=== PATIENT | female | born 1960 | race Caucasian/White ===

== ENCOUNTER 2016-12-10 13:58 | Inpatient (IN) | payer BC ==
[2016-12-10] MEDS ORDERED: NORMAL SALINE 1000 ML 1,000 ML IV ONE (14:06)
--- NOTE | 2016-12-10 14:23 | ER Document Report ---
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 She states this started about 2 or 3 hours ago. About one hour ago she took a Phenergan. She also ate a candy bar thinking that perhaps her blood sugar was low because she felt shaky. She states she has mild substernal chest pressure. Her symptoms were not improving so she decided to come to the emergency department. She states that she takes 3 medications for her blood pressure which include verapamil, lisinopril, and Dyazide. She reports no recent changes in dose. She did take all 3 of these medicines today. She denies any vomiting. She did have one episode of diarrhea earlier today. No dysuri. no recent fevers or chills. She herself has no cardiac history however she has a significant family history of NC with her sister at age 47 and her father in his 60s. TRAVEL OUTSIDE OF THE [place] IN LAST 30 DAYS: No - Related Data Allergies/Adverse Reactions: No Known Allergies Allergy (Unverified 12/10/16 16:11) Home Medications: Current Home Medications Atorvastatin Calcium [Atorvastatin Calcium] 80 mg PO DAILY 12/10/16 [History] Cyclobenzaprine HCl [Cyclobenzaprine HCl] 5 mg PO PRN PRN 12/10/16 [History] Eletriptan Hydrobromide [Relpax] 40 mg PO PRN PRN 12/10/16 [History] Estradiol [Estradiol] 0.075 mg TOP DAILY 12/10/16 [History] Levothyroxine Sodium [Levothyroxine Sodium] 75 mcg PO DAILY 12/10/16 [History] Metformin HCl 1,000 mg PO BID 12/10/16 [History] Montelukast Sodium [Montelukast Sodium] 10 mg PO DAILY 12/10/16 [History] Triamterene/Hydrochlorothiazid [Triamterene-Hctz 75-50 mg Tab] 1 each PO DAILY 12/10/16 [History] Verapamil HCl [Verapamil ER] 240 mg PO DAILY 12/10/16 [History] Past Medical History - Social History Smoking Status: Unknown if Ever Smoked Family History: CAD - Sister and father of massive NC Review of Systems - Review of Systems Constitutional: See HPI, Diaphoresis. denies: Chills, Fever EENT: No symptoms reported Cardiovascular: See HPI. denies: Palpitations Respiratory: See HPI. denies: Cough, Hurts to breathe, Sputum, Wheezing Gastrointestinal: See HPI, Nausea. denies: Abdominal pain, Vomiting Genitourinary: No symptoms reported. denies: Dysuria Musculoskeletal: No symptoms reported Skin: No symptoms reported Hematologic/Lymphatic: No symptoms reported Neurological/Psychological: No symptoms reported Physical Exam - Vital signs Vitals: Resp BP Pulse Ox 14 93/59 L 96 12/10/16 14:36 12/10/16 14:36 12/10/16 14:36 - General In distress: None Notes: Somewhat ill-appearing adult female, conversant, pale - HEENT Head: Normocephalic, Atraumatic Eyes: Normal Conjunctiva: Normal Cornea: Normal Extraocular movements intact: Yes Pupils: PERRL Mucous membranes: Other - somewhat tacky Neck: Normal - Respiratory Respiratory status: No respiratory distress Breath sounds: Normal. No: Rales, Rhonchi, Wheezing - Cardiovascular Rhythm: Regular Heart sounds: Normal auscultation, S1 appreciated, S2 appreciated - Abdominal Inspection: Normal Distension: No distension Bowel sounds: Normal Tenderness: Nontender Organomegaly: No organomegaly - Back Back: Normal - Extremities Notes: distal pulses intact all 4 extremities. - Neurological Neuro grossly intact: Yes Cognition: Normal Orientation: AAOx4 Cranial nerves: Normal Motor strength normal: LUE, RUE, LLE, RLE Sensory: Normal - Psychological Associated symptoms: Normal affect, Normal mood Course - Re-evaluation Re-evalutation: 12/10/16 14:21 EKG showed an accelerated junctional escape rhythm with a rate of 67. I see no P waves. There is minimal ST elevation in lead 2 however she no reciprocal changes. I did discuss this EKG with the revenue settlements administrator optoelectronics engineer Dr. Calle who will assess the EKG and call me back. Patient is noted to be hypotensive and saline bolus has been initiated. 12/10/16 14:30 recommends a dose of calcium gluconate as well as starting dopamine. Will also discuss transfer as patient may need pacemaker. 12/10/16 14:42 Dr. Calle is at the bedside. Blood pressure is responding to the normal saline bolus and calcium has been given as well. Repeat EKG shows sinus rhythm with a rate of 62. There is no acute ST elevation or depression noted. Dr. Calle recommends stat echocardiogram and IMCU admission. 12/10/16 15:19 Labs are back and first troponin is negative. Dr Calle has notified hospitalist Dr Charles. Dr. Charles will admit to ICU - Vital Signs Vital signs: Temp Pulse Resp BP Pulse Ox 97.4 F 84 16 103/64 100 12/11/16 10:49 12/11/16 10:49 12/11/16 10:49 12/11/16 10:49 12/11/16 10:49 - Laboratory Result Diagrams: 12/11/16 02:37 12/11/16 02:37 Laboratory results interpreted by me: 12/10/16 12/10/16 12/10/16 14:00 14:00 14:00 WBC 12.2 H Glucose 138 H POC Glucose Lactic Acid 4.0 H 12/10/16 14:45 WBC Glucose POC Glucose 113 H Lactic Acid - Diagnostic Test Radiology reviewed: Reports reviewed - EKG Interpretation by Me Additional EKG results interpreted by me: EKG at 1408 demonstrates junctional escape rhythm at rate of 67. There is minimal diffuse ST elevation noted, most pronounced in lead II. No reciprocal changes noted. EKG at 1438 demonstrates normal sinus rhythm, rate 62, with borderline prolonged QTc of 500 Critical Care Note - Critical Care Note Total time excluding time spent on procedures (mins): 45 - minutes of critical care time spent in direct contact evaluating and re-evaluating the patient, treating symptoms, reviewing labs and studies and speaking with consultants, excluding any procedures Discharge - Discharge Clinical Impression: Lactic acidosis Chest pain Qualifiers: Chest pain type: unspecified Qualified Code(s): R07.9 - Chest pain, unspecified Hypotension Qualifiers: Hypotension type: unspecified hypotension type Qualified Code(s): I95.9 - Hypotension, unspecified Condition: Fair Admitting Provider: Hospitalist - Dr. Charles Unit Admitted: ICU
[2016-12-10] MEDS ORDERED: CALCIUM GLUCONATE 1000 MG/10 ML INJ IV ONE (14:25)
[2016-12-10] MEDS ORDERED: DOPAMINE HCL/DEXTROSE 5%-WATER 250 ML IV PRN (14:26)
[2016-12-10 14:34] LABS: ABSOLUTE EOSINOPHILS # (AUTO) 0.2 10^3/uL (0.0-0.6); ABSOLUTE LYMPHOCYTES (AUTO) 4.2 10^3/uL (0.5-4.7); ABSOLUTE MONOCYTES (AUTO) 1.2 10^3/uL (0.1-1.4); ABSOLUTE NEUT (AUTO) 6.6 10^3/uL (1.7-8.2); BASOPHILS % (AUTO) 0.3 % (0-2); EOSINOPHILS % (AUTO) 1.4 % (0-6); HEMATOCRIT 43.5 % (36.0-47.0); HEMOGLOBIN 14.8 g/dL (12.0-15.5); HGB HCT DIFFERENCE 0.9; LYMPHOCYTES % (AUTO) 34.2 % (13-45); MEAN CORPUSCULAR HGB CONC 33.9 g/dL (32.0-36.0); MEAN CORPUSCULAR VOLUME 88 fl (80-97); MONOCYTES % (AUTO) 9.8 % (3-13); RED BLOOD COUNT 4.92 10^6/uL (3.72-5.28); RED CELL DISTRIBUTION WIDTH 13.2 % (11.5-14.0); SEGMENTED NEUTROPHILS % (AUTO) 54.3 % (42-78); WHITE BLOOD COUNT 12.2 10^3/uL (4.0-10.5)
[2016-12-10 14:39] LABS: PROTHROMBIN TIME 12.3 SEC (11.4-15.4)
[2016-12-10 14:42] LABS: VENOUS BLOOD BASE EXCESS -2.8 mmol/L; VENOUS BLOOD HCO3 23.9 mmol/L (20-32); VENOUS BLOOD PCO2 48.5 mmHg (35-63); VENOUS BLOOD PH 7.31 (7.30-7.42)
[2016-12-10 15:01] LABS: ALANINE AMINOTRANSFERASE 48 U/L (9-52); ALBUMIN 4.1 g/dL (3.5-5.0); ALKALINE PHOSPHATASE 60 U/L (38-126); ANION GAP 16 (5-19); ASPARTATE AMINO TRANSFERASE 30 U/L (14-36); BILIRUBIN,DIRECT 0.3 mg/dL (0.0-0.4); BILIRUBIN,TOTAL 0.9 mg/dL (0.2-1.3); BLOOD UREA NITROGEN 14 mg/dL (7-20); CALCIUM 9.8 mg/dL (8.4-10.2); CARBON DIOXIDE 23 mmol/L (22-30); CHLORIDE 99 mmol/L (98-107); CREATINE KINASE 69 U/L (30-135); CREATININE RESULT 0.96 mg/dL (0.52-1.25); GLUCOSE 138 mg/dL (75-110); POTASSIUM 4.1 mmol/L (3.6-5.0); SODIUM 137.5 mmol/L (137-145); TOTAL PROTEIN 6.8 g/dL (6.3-8.2)
[2016-12-10 15:13] LABS: CREATINE KINASE MB 1.05 ng/mL (<4.55); TROPONIN I < 0.012 ng/mL
[2016-12-10] MEDS ORDERED: ASPIRIN 81 MG TABLET, CHEWABLE PO ONE (15:24)
[2016-12-10] MEDS ORDERED: ASPIRIN 81 MG TABLET, CHEWABLE ONE (15:50)
--- NOTE | 2016-12-10 15:54 | PDOC H&P ---
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 She states this started about 2 or 3 hours ago. About one hour ago she took a Phenergan. She also ate a candy bar thinking that perhaps her blood sugar was low because she felt shaky. She states she has mild substernal chest pressure. Her symptoms were not improving so she decided to come to the emergency department. She states that she takes 3 medications for her blood pressure which include verapamil, lisinopril, and Dyazide. She reports no recent changes in dose. She did take all 3 of these medicines today. She denies any vomiting. She did have one episode of diarrhea earlier today. No dysuri. no recent fevers or chills. Upon evaluation in the ED patient was found hypotensive in a junctional rhythm She was treated with fluid boluses; calcium gluconate [address] Calle cardiology was consulted Her rhythm changed to a normal sinus rhythm and her blood pressure seemed to normalize at 90/60 She did not have any recurrence of chest pain Initial troponin was negative Patient was subsequently admitted to ICU Past Medical History Cardiac Medical History: Reports: Hypertension, Other - Last stress test was at least 10 years ago Endocrine Medical History: Reports: Diabetes Mellitus Type 2, Hypothyroidism, Other - Hyperlipidemia GI Medical History: Reports: None Musculoskeltal Medical History: Reports: None Skin Medical History: Reports: None Psychiatric Medical History: Reports: None Hematology: Reports: None Infectious Medical History: Reports: None Past Surgical History Past Surgical History: Reports: Cholecystectomy, Hysterectomy, Other - Social History Information Source: Patient Lives with: Family Smoking Status: Never Smoker Frequency of Alcohol Use: None Hx Recreational Drug Use: No Drugs: None Family History Family History: CAD, Hypertension Parental Family History Reviewed: Yes Children Family History Reviewed: Yes Sibling(s) Family History Reviewed.: Yes Review of Systems Constitutional: ABSENT: chills, fever(s), headache(s), weight gain, weight loss Eyes: ABSENT: visual disturbances Ears: ABSENT: hearing changes Cardiovascular: PRESENT: chest pain. ABSENT: dyspnea on exertion, edema, orthropnea, palpitations Respiratory: ABSENT: cough, hemoptysis Gastrointestinal: PRESENT: as per HPI, diarrhea, nausea. ABSENT: abdominal pain , constipation, hematemesis, hematochezia Genitourinary: ABSENT: dysuria, hematuria Musculoskeletal: ABSENT: joint swelling Integumentary: ABSENT: rash, wounds Neurological: PRESENT: dizziness, weakness. ABSENT: abnormal gait, abnormal speech, confusion, focal weakness, syncope Psychiatric: ABSENT: anxiety, depression, homidical ideation, suicidal ideation Endocrine: ABSENT: cold intolerance, heat intolerance, polydipsia, polyuria Hematologic/Lymphatic: ABSENT: easy bleeding, easy bruising Physical Exam General appearance: PRESENT: no acute distress, well-developed, well-nourished Head exam: PRESENT: atraumatic, normocephalic Eye exam: PRESENT: conjunctiva pink, EOMI, PERRLA. ABSENT: scleral icterus Ear exam: PRESENT: normal external ear exam Mouth exam: PRESENT: moist, tongue midline Neck exam: ABSENT: carotid bruit, JVD, lymphadenopathy, thyromegaly Respiratory exam: PRESENT: clear to auscultation jigna. ABSENT: rales, rhonchi, wheezes Cardiovascular exam: PRESENT: RRR. ABSENT: diastolic murmur, rubs, systolic murmur Pulses: PRESENT: normal dorsalis pedis pul Vascular exam: PRESENT: normal capillary refill GI/Abdominal exam: PRESENT: normal bowel sounds, soft. ABSENT: distended, guarding, mass, organolmegaly, rebound, tenderness Rectal exam: PRESENT: deferred Extremities exam: PRESENT: full ROM. ABSENT: calf tenderness, clubbing, pedal edema Neurological exam: PRESENT: alert, awake, oriented to person, oriented to place , oriented to time, oriented to situation, CN II-XII grossly intact. ABSENT: motor sensory deficit Psychiatric exam: PRESENT: appropriate affect, normal mood. ABSENT: homicidal ideation, suicidal ideation Skin exam: PRESENT: dry, intact, warm. ABSENT: cyanosis, rash Results Laboratory Results: 12/10/16 14:00 12/10/16 14:00 12/10/16 12/10/16 12/10/16 14:00 14:00 14:00 WBC 12.2 H RBC 4.92 Hgb 14.8 Hct 43.5 MCV 88 MCH 30.0 MCHC 33.9 RDW 13.2 Plt Count 327 Seg Neutrophils % 54.3 Lymphocytes % 34.2 Monocytes % 9.8 Eosinophils % 1.4 Basophils % 0.3 Absolute Neutrophils 6.6 Absolute Lymphocytes 4.2 Absolute Monocytes 1.2 Absolute Eosinophils 0.2 Absolute Basophils 0.0 VBG pH VBG pCO2 VBG HCO3 VBG Base Excess Sodium 137.5 Potassium 4.1 Chloride 99 Carbon Dioxide 23 Anion Gap 16 BUN 14 Creatinine 0.96 Est GFR ( Amer) > 60 Est GFR (Non-Af Amer) > 60 Glucose 138 H Lactic Acid 4.0 H Calcium 9.8 Total Bilirubin 0.9 AST 30 ALT 48 Alkaline Phosphatase 60 Total Protein 6.8 Albumin 4.1 12/10/16 14:00 WBC RBC Hgb Hct MCV MCH MCHC RDW Plt Count Seg Neutrophils % Lymphocytes % Monocytes % Eosinophils % Basophils % Absolute Neutrophils Absolute Lymphocytes Absolute Monocytes Absolute Eosinophils Absolute Basophils VBG pH 7.31 VBG pCO2 48.5 VBG HCO3 23.9 VBG Base Excess -2.8 Sodium Potassium Chloride Carbon Dioxide Anion Gap BUN Creatinine Est GFR ( Amer) Est GFR (Non-Af Amer) Glucose Lactic Acid Calcium Total Bilirubin AST ALT Alkaline Phosphatase Total Protein Albumin 12/10/16 12/10/16 14:00 14:00 Creatine Kinase 69 CK-MB (CK-2) 1.05 Troponin I < 0.012 EKG Comments: Initial EKG junctional rhythm Repeat EKG is normal sinus rhythm Impressions: Chest X-Ray 12/10/16 14:04 IMPRESSION: As above. Doubt acute cardiopulmonary disease. Assessment & Plan - Diagnosis (1) Near syncope Is this a current diagnosis for this admission?: YesPlan: Patient felt dizzy lightheaded Initially in the ED she was very hypotensive with a systolic of 60 Hypotension likely secondary to dehydration and calcium channel blockers Patient responded to infusion of saline and calcium gluconate (2) Hypotension Qualifiers: Hypotension type: unspecified hypotension type Qualified Code(s): I95.9 - Hypotension, unspecified Is this a current diagnosis for this admission?: YesPlan: See above Patient tissue to be continued on IV fluids and dopamine drip as per Dr. Calle (3) Junctional escape rhythm Is this a current diagnosis for this admission?: YesPlan: Resolved (5) Chest pain Qualifiers: Chest pain type: unspecified Qualified Code(s): R07.9 - Chest pain, unspecified Is this a current diagnosis for this admission?: YesPlan: Patient did have right-sided chest pressure Initial EKG shows [address] elevation inferior leads; still elevation resolved 30 minutes later The initial troponin was less than 0.012 We will repeat serial troponins and serial also repeat an EKG Dr. Calle does not feel that the patient needs to be transported to tertiary center at this time patient has no recurrence of the chest pain Echocardiogram is pending; being performed at time of this note is dictated - Time Time Spent with patient: Patient will be admitted overnight to the intensive care unit Critical Time spent with patient: 35 or more minutes - Inpatient Certification Based on my medical assessment, after consideration of the patient's comorbidities, presenting symptoms, or acuity I expect that the services needed warrant INPATIENT care.: Yes I certify that my determination is in accordance with my understanding of Medicare's requirements for reasonable and necessary INPATIENT services [42 CFR 412.3e].: Yes Medical Necessity: Need For IV Fluids, Need For Continuous Telemetry Monitoring
[2016-12-10] MEDS ORDERED: ENOXAPARIN SODIUM INJ 40 MG/0.4 ML DISP.SYRIN SUBCUT ONE (17:00)
--- NOTE | 2016-12-10 17:54 | XCELERA REPORT ---
[address] [address] Transthoracic Echocardiogram Report Name: TEDDY HUNT Age: 56 yrs Gender: Female : 1960 Patient Status: Inpatient Patient Location: \S\[facility]\S\A Study Date: 12/10/2016 03:35 PM Procedure: A two-dimensional transthoracic echocardiogram with color flow and Doppler was performed. The study was technically limited with all images being suboptimal in quality. Reason For Study: chest pain/hypotension History: chest pain/hypotension. Ordering Physician: JOSEFINA SANCHEZ Performed By: Rosita Mills Interpretation Summary The left ventricle is normal in size. There is normal left ventricular wall thickness. LV EF is 65% Left ventricular systolic function is normal. Doppler measurements suggest normal left ventricular diastolic function The left ventricular wall motion is normal. There is no thrombus. There is no ventricular septal defect visualized. The right ventricle is normal in size and function. The left atrial size is normal. The interatrial septum is intact with no evidence for an atrial septal defect. There is no evidence of mitral valve prolapse. There is no mitral valve stenosis. There is a trace amount of mitral regurgitation There is no aortic valve stenosis There is no LVOT obstruction. No aortic regurgitation is present. There is no tricuspid stenosis. There is a trace amount of tricuspid regurgitation Right ventricular systolic pressure is normal. RVSP is 17 mm of Hg , with RA mean of 5. The aortic root is normal size. There is no pericardial effusion. MMode/2D Measurements \T\ Calculations RVDd: 2.8 cm LVIDd: 4.6 cm FS: 37.5 % Ao root diam: 2.8 cm IVSd: 1.1 cm LVIDs: 2.9 cm EDV(Teich): 97.3 ml Ao root area: 6.1 cm2 LVPWd: 0.92 cmESV(Teich): 31.5 ml LA dimension: 3.7 cm EF(Teich): 67.6 % LVOT diam: 1.9 cm LVOT area: 2.8 cm2 Doppler Measurements \T\ Calculations MV E max zoe: MV P1/2t max zoe: Ao V2 max: LV V1 max P.6 cm/sec 116.5 cm/sec 170.4 cm/sec 4.8 mmHg MV A max zoe: MV P1/2t: 64.4 msec Ao max PG: LV V1 max: 86.2 cm/sec 11.6 mmHg 109.5 cm/sec MV E/A: 1.3 MVA(P1/2t): 3.4 cm2 MV dec slope: KELLEY(V,D): 1.8 cm2 529.6 cm/sec2 PA V2 max: TR max zoe: 60.0 cm/sec 173.7 cm/sec PA max PG: TR max P.1 mmHg 1.4 mmHg Left Ventricle The left ventricle is normal in size. There is normal left ventricular wall thickness. LV EF is 65%. Left ventricular systolic function is normal. Doppler measurements suggest normal left ventricular diastolic function. The left ventricular wall motion is normal. There is no thrombus. There is no ventricular septal defect visualized. Right Ventricle The right ventricle is normal in size and function. Atria The right atrium is normal. The left atrial size is normal. The interatrial septum is intact with no evidence for an atrial septal defect. Mitral Valve There is no evidence of mitral valve prolapse. There is no vegetation seen on the mitral valve. There is no mitral valve stenosis. There is a trace amount of mitral regurgitation. Aortic Valve The aortic valve is trileaflet. The aortic valve opens well. There is no aortic valvular vegetation. There is no aortic valve stenosis. There is no LVOT obstruction. No aortic regurgitation is present. Tricuspid Valve There is no tricuspid stenosis. There is a trace amount of tricuspid regurgitation. Right ventricular systolic pressure is normal. RVSP is 17 mm of Hg , with RA mean of 5. Pulmonic Valve There is no pulmonic valvular stenosis. There is no pulmonic valvular regurgitation. Great Vessels The aortic root is normal size. Effusions There is no pericardial effusion. : JOSEFINA SANCHEZ > Britney Hector
[2016-12-10] MEDS: NORMAL SALINE 1000 ML 1,000 ML IV PRN (18:54)
[2016-12-10] MEDS: PANTOPRAZOLE SODIUM 40 MG VIAL IV SCH (21:58)
[2016-12-11 02:49] LABS: ABSOLUTE LYMPHOCYTES (AUTO) 1.9 10^3/uL (0.5-4.7); ABSOLUTE MONOCYTES (AUTO) 0.4 10^3/uL (0.1-1.4); BASOPHILS % (AUTO) 0.5 % (0-2); EOSINOPHILS % (AUTO) 0.5 % (0-6); HEMATOCRIT 38.9 % (36.0-47.0); HEMOGLOBIN 13.3 g/dL (12.0-15.5); LYMPHOCYTES % (AUTO) 29.3 % (13-45); MEAN CORPUSCULAR HEMOGLOBIN 30.3 pg (27.0-33.4); MEAN CORPUSCULAR HGB CONC 34.1 g/dL (32.0-36.0); MEAN CORPUSCULAR VOLUME 89 fl (80-97); MONOCYTES % (AUTO) 6.8 % (3-13); RED BLOOD COUNT 4.39 10^6/uL (3.72-5.28); RED CELL DISTRIBUTION WIDTH 13.3 % (11.5-14.0); SEGMENTED NEUTROPHILS % (AUTO) 62.9 % (42-78); WHITE BLOOD COUNT 6.4 10^3/uL (4.0-10.5)
[2016-12-11 03:13] LABS: ALANINE AMINOTRANSFERASE 43 U/L (9-52); ALBUMIN 3.6 g/dL (3.5-5.0); ALKALINE PHOSPHATASE 50 U/L (38-126); ANION GAP 11 (5-19); ASPARTATE AMINO TRANSFERASE 22 U/L (14-36); BILIRUBIN,DIRECT 0.3 mg/dL (0.0-0.4); BLOOD UREA NITROGEN 10 mg/dL (7-20); CALCIUM 8.9 mg/dL (8.4-10.2); CARBON DIOXIDE 22 mmol/L (22-30); CHLORIDE 109 mmol/L (98-107); CHOLESTEROL 179.15 mg/dL (0-200); CREATININE RESULT 0.64 mg/dL (0.52-1.25); Direct HDL 31 mg/dL (>40); GLUCOSE 91 mg/dL (75-110); POTASSIUM 4.8 mmol/L (3.6-5.0); SODIUM 142.4 mmol/L (137-145); TOTAL PROTEIN 6.3 g/dL (6.3-8.2); TRIGLYCERIDES 258 mg/dL (<150)
[2016-12-11 03:25] LABS: DIRECT LDL 99 mg/dL (<100)
[2016-12-11 03:29] LABS: TROPONIN I < 0.012 ng/mL; VLDL CHOLESTEROL 51.6 mg/dL (10-31)
--- NOTE | 2016-12-11 05:29 | CONSULTATION REPORT E ---
Consultation Report NAME: TEDDY HUNT : 1960 AGE: 56Y DATE: 12/10/2016 604 A TO: TELLY CUEVA M.D. FROM: Requesting Physician NOTE: I was with the patient at 2:40 p.m. to 3:40 p.m. and subsequently visited the patient at around 6 o'clock to discuss her echo findings briefly. REASON FOR CONSULTATION: Hypotension, near syncope and accelerated junctional rhythm. 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 She thought it will go away and she took some Phenergan for the nausea, but the symptoms persisted. Also, she had 1 bout of diarrhea and she presented to the ER with near syncopal episode where she was found to be hypotensive with a blood pressure in the 70 to 60s and the patient feeling very tired and near syncopal and blurry eyed with floaters in the eyes, but no true syncope. The patient also complains of generalized fatigue and weakness and also was complaining of right upper-sided chest discomfort and subsequently this went up to the jaw and had soreness in the jaw. She states that she has never had this before as per Dr. Forrester. Dr. Forrester asked me to review the EKG, [facility] and told her that she had junctional rhythm and asked her if the patient was on any calcium channel blockers and other blood pressure medications. So, I advised Dr. Forrester to give the patient 1 amp of calcium gluconate and to give her IV fluids wide open boluses and by the time arrived there, she at least had the second 1 almost through and at this time, she had come back to sinus rhythm. She was in Trendelenburg; hence, she has some chest pressure in the right upper chest and the soreness in the jaw was gone. Her blood pressure was in the 90s and touched up to 100/61 systolic. When I spoke the patient, she denies any such episodes. She has a history of hypertension. There are no palpitations. She has never had any episodes like this. There are no symptoms of TIA or CVA. There is no history of cardiac arrhythmia. She is noninsulin-dependent diabetic type 2 without complications and she was also on verapamil as per the patient 240 mg p.o. daily, which she took this morning and also lisinopril 20 mg p.o. this morning and Dyazide, she says 37.5/25 mg in the morning. Subsequently, she also took Phenergan. There were no TIA or CVA symptoms, but when the blood pressure was in the 90, she was awake and alert and said that she felt much better, but still a little fatigued. PAST MEDICAL HISTORY: Positive for history of hypertension. She also has a history of diabetes mellitus type 2, noninsulin-dependent, on metformin. She denies any history of IL or anginal symptoms. She states she had a stress test 10 years ago, which was negative. She also states that she has no history of TIA or CVA, anxiety or depression. There is no history of asthma, COPD, or obstructive sleep apnea. There is no history of pulmonary embolism in the past. PAST SURGICAL HISTORY: Positive for , hysterectomy, and also cholecystectomy. FAMILY HISTORY: Positive for coronary artery disease and hypertension. She states her sister had an IL at age 47. ALLERGIES: She has no known allergies. MEDICATIONS AT HOME: 1. Atorvastatin 80 mg p.o. daily. 2. She is on cyclobenzaprine 5 mg p.o. p.r.n. 3. She is on Relpax 40 mg p.o. p.r.n. 4. She is on estradiol 0.075 topically 1 patch transdermal weekly. 5. She is also on Synthroid 75 mcg p.o. daily. 6. She is on metformin 1000 mg p.o. b.i.d. 7. She is on Singulair 10 mg p.o. daily. 8. She is on triamterene/hydrochlorothiazide 1 each. 9. It is not listed here, but she told me she was on lisinopril 20 mg p.o. daily. 10. Verapamil extended release 250 mg p.o. daily. SOCIAL HISTORY: The patient does not smoke. There is no history of EtOH abuse. INTAKE/OUTPUT: At present in the emergency room, IVs are wide open and subsequently will be at 200 mg per hour. REVIEW OF SYSTEMS: CONSTITUTIONAL: Denies any fever, chills or rigors. HEAD: Denies any headaches or migraines. She has dizziness, weakness, as mentioned earlier near syncope due to junctional escape rhythm and hypotension secondary to medication and also dehydration. EYES: No history of amblyopia or diplopia now. Earlier, she had floaters on the eyes and had some blurred vision when was hypotensive. EARS: No history of tinnitus. No history of hearing loss. No history of recurrent ear infections. NOSE: No history of hay fever. No history of nosebleeds. No history of nasal polyposis. MOUTH: No history of altered taste sensation. No history of bleeding from the gums. No ulcers in the mouth. THROAT: No history of odynophagia or dysphagia. No history of recurrent sore throats. SKIN: There is no pruritus. There is no yellowish discoloration of the skin. There is no psoriasis. NECK: No history of C-spine arthritis symptoms. No history of goiter. LUNGS: No history of cough or wheezing. No history of symptoms suggestive of bronchitis or pneumonia. No history of pulmonary embolism. No history of pleuritic chest pain. Vague right upper chest pain or soreness, which subsequently went up into the jaw. There is no pleuritic chest pain. There is no history of sleep apnea. CARDIOVASCULAR: History of hypertension present. No history of coronary artery disease. No history of IL or angina. No history of congestive heart failure. This is the first episode of near syncope with bradycardia. There have been no changes in medications. There is no prior history of palpitations, PND or orthopnea. The patient has near syncope, but no true syncope. GASTROINTESTINAL: No history of GI bleed. No history of fatty food intolerance. No history of abdominal pain. No symptoms of GERD. No history of peptic ulcer disease. She had 1 bout of diarrhea without any abdominal pain. There is no history of GI bleed. MUSCULOSKELETAL: Denies any arthritis or collagen vascular disease. RENAL: No history of chronic kidney disease. No symptoms of UTI. No history of hematuria, pyuria, or dysuria. CENTRAL NERVOUS SYSTEM: No history of TIA or CVA. No history of headaches, migraines, or seizures. Near syncopal episodes as mentioned earlier due to her accelerated junctional rhythm and hypotension. PSYCHIATRIC: No history of anxiety or depression. No history of homicidal or suicidal ideation. VASCULAR: No history of calf or buttock claudication. No history of DVT. HEMATOLOGICAL: No history of anemia. No history of bleeding diathesis. No history of clotting disorders. No petechiae or ecchymoses. Rest of the review of systems is positive for, the patient states that her legs, especially at ankles and hence, she is on Dyazide. There is no history of congestive heart failure. At present, after 3 boluses of 1000 mL of IV normal saline wide open (total of 3 liters), she is now at 200 mL per hour of normal saline IV. PHYSICAL EXAMINATION: VITAL SIGNS: On examination, when I saw her later, after initial episode of junctional rhythm and hypotension, at present, pulse is 66 beats per minute. Blood pressure is 92/48. Respirations are 18 per minute. O2 sats are 98% on room air. GENERAL: The patient is moderately obese, well-groomed. When I saw, she was not in any major distress. HEAD: On examination, head is atraumatic, normocephalic. EYES: Pupils are equal, round, regular, reactive to light and accommodation. Extraocular movements are normal. There is no conjunctival pallor. There is no scleral icterus. EARS: External auditory canals are clear. Tympanic membranes are intact. There are no lesions on the pinnae. NOSE: There is no deviated nasal septum. There are no nasal polyps. There is no inflammation of nasal mucous membranes. MOUTH: The mouth and tongue are very severely dry. There no ulcers in the mouth. There is no bleeding from the gums. THROAT: There is no redness of the oropharynx. There are no exudates. SKIN: There are no skin rashes. There are no skin lesions. There are no petechiae or ecchymoses. NECK: Neck is supple. There is no JVD. Even when the patient is in Trendelenburg, there was no JVD. This means that the patient is markedly dry secondary to dehydration. Carotids are equal. There is no bruit. There is no lymphadenopathy. There is no goiter. Trachea is central. LUNGS: Lungs are clear to auscultation and percussion. There is no chest wall tenderness. HEART: S1, S2 are heard. There is no S3 gallop. There is no S4 gallop. There is systolic murmur in the left sternal border and the apex without radiation. There is no rub. ABDOMEN: Abdomen is soft and nontender. There is no hepatosplenomegaly. Bowel sounds are well heard. There are no tender areas or masses. There is no rebound, guarding, or rigidity. EXTREMITIES: Femorals are slightly diminished. There are no femoral bruits. Leg pulses are well felt. There is no pedal edema. There is no DVT or cellulitis. There is no cyanosis or clubbing. There is calf tenderness. CENTRAL NERVOUS SYSTEM: The patient at present is conscious, awake, alert, oriented x3 with no focal deficits. PSYCHIATRIC: The patient's judgment and insight are intact. Her affect is normal. DIAGNOSTIC TEST RESULTS: The patient's initial EKG showed accelerated junctional rhythm with some suggestion of mild borderline ST elevation in inferior leads with mild borderline ST-depression in lead AVR, suspicious for pericarditis, but the patient had no symptoms of pericarditis. Her subsequent EKG showed sinus rhythm, borderline prolonged QT interval, but otherwise no acute changes. Her third EKG showed sinus rhythm within normal limits. I had asked them to do the echocardiogram and the echocardiogram was within normal limits, except for trace mitral regurgitation and trace tricuspid regurgitation with a right ventricular systolic pressure within normal limits of 17 mmHg. There was no pericardial effusion. LABORATORY RESULTS: Her laboratory data showed white count was 12,300; hemoglobin was 14.8; hematocrit was 43.5; and the platelet count was 327,000. Her sed rate was 11. Her ProTime was 12.3, INR was 0.89. Her venous blood gases show venous pH of 7.31, pCO2 was 48.5 and bicarb was 23.9. Her sodium was 137.5, potassium 4.1., chloride 99, CO2 was 23, her BUN was 14, creatinine was 0.96, and GFR was greater than 60. Her calcium was 9.8. Her liver function tests were normal. Her albumin was 4.1 and total protein was 6.8. Her C-reactive protein was normal at less than 5. Her troponin I was less than 0.012, which was normal. Her lactic acid was elevated at 4.0. Her chest x-ray was within normal limits. As per my interpretation, there is no evidence of any infiltrates or congestive heart failure. IMPRESSION: 1. NEAR SYNCOPE SECONDARY TO HYPOTENSION SECONDARY TO MEDICATION AND DEHYDRATION SECONDARY TO DYAZIDE AND THE PATIENT HAVING 1 BOUT OF DIARRHEA. 2. HYPOTENSION MENTIONED EARLIER SECONDARY TO MEDICATIONS AND DEHYDRATION, ESPECIALLY CALCIUM CHANNEL MARQUIS AND THE PATIENT'S LISINOPRIL, ALSO SECONDARY TO DEHYDRATION DUE TO TAKING DYAZIDE AND HAVING A BOUT OF DIARRHEA. 3. JUNCTIONAL ESCAPE RHYTHM, MOST LIKELY SECONDARY TO CALCIUM CHANNEL MARQUIS TOXICITY. This was corrected with calcium gluconate and IV fluids. 4. CHEST PAIN, NON-CARDIAC. So far, the EKG is normal and the last EKG was normal and the troponin I has been negative. Also, lactic acidosis with elevated lactic acid level secondary to hypotension and the patient being on metformin. RECOMMENDATIONS: Note, since I saw the patient again briefly later on, her blood pressure was in the 90s and hence, we started her on 2.5 mcg/kg of dopamine, which the patient did not tolerate. She had nausea and her heart rate went up and she felt very bad and this was stopped. Hence, my recommendation would be to continue the patient's IV fluid at 200 mL per hour. I would recommend DVT prophylaxis with Lovenox and also GI prophylaxis with proton-pump inhibitor. Later, when I came back after the echocardiogram to speak to the patient, the echocardiogram was within normal limits with trace TR and MR, which is deemed to be physiological. The patient at that time was standing up and her blood pressure was 120/60. The patient will be monitored in the ICU. We will trend serial cardiac enzymes and we will recheck the patient's EKG in the a.m. We would recommend stopping the patient's metformin in view of the patient's lactic acidosis. Also, we would check the patient's thyroid hormone levels. We will observe the patient in the ICU. I have discussed this with the patient and with the patient's . Earlier, I have discussed with the ER physician, Dr. Forrester and also with Dr. Charles, the hospitalist, who was admitting the patient. Note, 160 minutes of critical care time was spent, which included more than 50% of the time with the patient on direct care, directing treatment of the patient and watching response of the treatment and also discussions later on with the patient outside the 60 minutes that her echocardiogram was normal and the EKG was normal and her enzymes were normal. Since the patient has no history of tachycardia, we would recommend placing the patient on something like amlodipine. If the patient reverts back into bradycardia with the hypotension, then we would recommend transferring the patient for a permanent pacemaker. Later, we would recommend that the patient is to have a stress test since there is premature coronary artery disease in the family and the patient had some atypical chest pain, even though I think it is non-cardiac. Patient is a high-complex case with high medical complexity decision making in view of the hypotension and the junctional rhythm and lactic acidosis. We will follow with you. Thanking you. DICTATING PHYSICIAN: TELLY CUEVA M.D. [id number] [facility]#: [id number] ID: [id number] JOB#: [id number] ACCT: [id number] cc:TELLY CUEVA M.D. >
[2016-12-11] MEDS: NORMAL SALINE 1000 ML 1,000 ML IV PRN (05:34)
[2016-12-11] MEDS ORDERED: ENOXAPARIN SODIUM INJ 40 MG/0.4 ML DISP.SYRIN SUBCUT SCH (08:00)
[2016-12-11 08:42] LABS: THYROID STIMULATING HORMONE 1.62 uIU/mL (0.47-4.68)
[2016-12-11] MEDS: PANTOPRAZOLE SODIUM 40 MG VIAL IV SCH (09:06)
--- NOTE | 2016-12-11 10:17 | EKG REPORT ---
SEVERITY:- ABNORMAL ECG - ACCELERATED JUNCTIONAL ESCAPE RHYTHM : Confirmed by: Galdino Sheth 11-Dec-2016 10:17:06
--- NOTE | 2016-12-11 10:17 | EKG REPORT ---
SEVERITY:- NORMAL ECG - SINUS RHYTHM : Confirmed by: Galdino Sheth 11-Dec-2016 10:16:46
--- NOTE | 2016-12-11 10:17 | EKG REPORT ---
SEVERITY:- BORDERLINE ECG - SINUS RHYTHM BORDERLINE PROLONGED QT INTERVAL : Confirmed by: Galdino Sheth 11-Dec-2016 10:16:53
[2016-12-11 12:32] VITALS: BP 149/89
--- NOTE | 2016-12-11 15:42 | PDOC DISCHARGE SUMMARY ---
General - Admit/Disc Date/PCP Admission Date/Primary Care Provider: 12/10/16 15:27 JAY HUNTER MD Discharge Date: 12/11/16 - Discharge Diagnosis (1) Near syncope Is this a current diagnosis for this admission?: Yes (2) Hypotension Is this a current diagnosis for this admission?: Yes (3) Junctional escape rhythm Is this a current diagnosis for this admission?: Yes (5) Chest pain Is this a current diagnosis for this admission?: Yes - Additional Information Discharge Activity: Activity As Tolerated Home Medications: Atorvastatin Calcium [Atorvastatin Calcium] 80 mg PO DAILY 12/10/16 Cyclobenzaprine HCl [Cyclobenzaprine HCl] 5 mg PO PRN PRN 12/10/16 Eletriptan Hydrobromide [Relpax] 40 mg PO PRN PRN 12/10/16 Estradiol [Estradiol] 0.075 mg TOP DAILY 12/10/16 Levothyroxine Sodium [Levothyroxine Sodium] 75 mcg PO DAILY 12/10/16 Montelukast Sodium [Montelukast Sodium] 10 mg PO DAILY 12/10/16 Lisinopril 5 mg PO DAILY #60 tablet 12/11/16 History of Present Illness Patient complains of: dizziness hypotension History of Present Illness: TEDDY HUNT is a 56 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 She states this started about 2 or 3 hours ago. About one hour ago she took a Phenergan. She also ate a candy bar thinking that perhaps her blood sugar was low because she felt shaky. She states she has mild substernal chest pressure. Her symptoms were not improving so she decided to come to the emergency department. She states that she takes 3 medications for her blood pressure which include verapamil, lisinopril, and Dyazide. She reports no recent changes in dose. She did take all 3 of these medicines today. She denies any vomiting. She did have one episode of diarrhea earlier today. No dysuri. no recent fevers or chills. Upon evaluation in the ED patient was found hypotensive in a junctional rhythm She was treated with fluid boluses; calcium gluconate [address] Calle cardiology was consulted Her rhythm changed to a normal sinus rhythm and her blood pressure seemed to normalize at 90/60 She did not have any recurrence of chest pain Initial troponin was negative Patient was subsequently admitted to ICU Hospital Course Hospital Course: Patient presented to the ED with dizziness lightheadedness severe hypotension Recommended initial evaluation she was in a junctional rhythm She was on Calan SR for hypertension patient responded to IV fluids and calcium gluconate She was subsequently admitted overnight in the intensive care unit for further evaluation and care 1 hypotension Was likely secondary to hypovolemia and calcium channel blockers Patient was given fluid boluses kept on IV fluids overnite Were short time only she was on the dopamine drip Blood pressure normalized and the next morning she did not have any orthostatic hypotension 2 cardiac arrhythmia Patient was in a junctional rhythm on earlier admissions in the ED She converted to a normal sinus rhythm 3 chest pain Serial EKG and troponins were performed there was no evidence of coronary ischemia Patient's medications were changed as per Dr. Calle's recommendation Lisinopril 5 mg by mouth daily was prescribed for hypertension Calan SR hydrochlorothiazide were discontinued Elevated lactic acid likely to be secondary to metformin Metformin was discontinued Physical Exam Vital Signs: Temp Pulse Resp BP Pulse Ox 98.3 F 81 16 149/89 H 100 12/11/16 12:31 12/11/16 12:31 12/11/16 12:31 12/11/16 12:31 12/11/16 12:31 Intake & Output 12/10/16 12/11/16 12/12/16 00:59 00:59 00:59 Intake Total 2478 Output Total 1300 2400 Balance -1300 78 Weight 87.8 kg 88.7 kg Results Laboratory Results: 12/11/16 02:37 12/11/16 02:37 12/10/16 12/11/16 12/11/16 20:25 02:37 02:37 WBC 6.4 RBC 4.39 Hgb 13.3 Hct 38.9 MCV 89 MCH 30.3 MCHC 34.1 RDW 13.3 Plt Count 187 Seg Neutrophils % 62.9 Lymphocytes % 29.3 Monocytes % 6.8 Eosinophils % 0.5 Basophils % 0.5 Absolute Neutrophils 4.0 Absolute Lymphocytes 1.9 Absolute Monocytes 0.4 Absolute Eosinophils 0.0 Absolute Basophils 0.0 Sodium 142.4 Potassium 4.8 Chloride 109 H Carbon Dioxide 22 Anion Gap 11 BUN 10 Creatinine 0.64 Est GFR ( Amer) > 60 Est GFR (Non-Af Amer) > 60 Glucose 91 Lactic Acid 2.5 H Calcium 8.9 Total Bilirubin 1.0 AST 22 ALT 43 Alkaline Phosphatase 50 Total Protein 6.3 Albumin 3.6 Triglycerides 258 H Cholesterol 179.15 LDL Cholesterol Direct 99 VLDL Cholesterol 51.6 H HDL Cholesterol 31 L TSH Free T4 12/11/16 12/11/16 02:37 08:07 WBC RBC Hgb Hct MCV MCH MCHC RDW Plt Count Seg Neutrophils % Lymphocytes % Monocytes % Eosinophils % Basophils % Absolute Neutrophils Absolute Lymphocytes Absolute Monocytes Absolute Eosinophils Absolute Basophils Sodium Potassium Chloride Carbon Dioxide Anion Gap BUN Creatinine Est GFR ( Amer) Est GFR (Non-Af Amer) Glucose Lactic Acid 1.6 Calcium Total Bilirubin AST ALT Alkaline Phosphatase Total Protein Albumin Triglycerides Cholesterol LDL Cholesterol Direct VLDL Cholesterol HDL Cholesterol TSH 1.62 Free T4 1.15 12/10/16 12/11/16 20:25 02:37 Troponin I < 0.012 < 0.012 NT-Pro-B Natriuret Pep 84 Impressions: Chest X-Ray 12/10/16 14:04 IMPRESSION: As above. Doubt acute cardiopulmonary disease. Plan Discharge Plan: patient was discharged home to follow up with Dr. Calle; she will be scheduled for an event monitor is an outpatient Time Spent: Greater than 30 Minutes
--- NOTE | 2016-12-11 17:28 | PROGRESS NOTE E ---
Progress Note NAME: TEDDY WOODALL : 1960 AGE: 56Y DATE: 12/11/2016 ROOM: 604 SUBJECTIVE: Time of seeing patient is 8:45 to 9:15. Ms. Woodall was seen when I woke her up. She had no symptoms. The patient remains in sinus rhythm. There are no palpitations. The chest pain indeed was noncardiac. There are no TIA or CVA symptoms. There is no arrhythmia seen on the monitor. There is no bradycardia on the monitor or recurrence of junctional rhythm. The patient denies any cough or sputum production, PND or orthopnea. OBJECTIVE: GENERAL: The patient is moderately obese, well-groomed at present in no distress. VITAL SIGNS: Earlier she was afebrile with a heart rate of 83 beats per minute, blood pressure 148/87, respirations are 40 per minute, O2 sats are 98% on room air. At the time I saw her, her pulse was regular at 85 beats per minute. HEENT: Head is normocephalic, atraumatic. Eyes: Pupils are equal, round, and reactive to light and accommodation. Extraocular movements are normal. There is no conjunctival pallor. There is no scleral icterus. Ears: External auditory canals are clear. Tympanic membranes are intact. There are no lesions on the pinna. Nose: There is no deviated nasal septum. There are no nasal polyps. There is no inflammation of nasal mucous membranes. Mouth: Mucous membranes of the mouth are moist. Tongue is moist. There no ulcers in the mouth. There is no bleeding from the gums. Throat: There is no redness of the oropharynx. There are no exudates. SKIN: There are no skin rashes. There are no skin lesions. There is no petechia or ecchymosis. NECK: Supple. There is no JVD. Carotids are equal. There is no bruit. There is no lymphadenopathy. Trachea is central. LUNGS: Clear to auscultation and percussion. There is no chest wall tenderness. There are no rhonchi, rales or wheezing. HEART: S1 and S2 are heard. There is no S3 gallop. There is no S4 gallop. There is a systolic murmur in the left sternal border and apex without radiation. There is no rub. ABDOMEN: Soft, nontender. There is no hepatosplenomegaly. Bowel sounds are heard. There are no tender areas or masses. There is no rebound, guarding or rigidity. EXTREMITIES: Femorals are slightly diminished. There are no femoral bruits. Leg pulses are well felt. There is no pedal edema. There is no DVT or cellulitis. There is no cyanosis or clubbing. There is no calf tenderness. CENTRAL NERVOUS SYSTEM: The patient is conscious, awake, alert x3 with focal deficits. PSYCHIATRIC: The patient's judgment and insight are intact. Her affect is normal. LABORATORY DATA: The patient's 24-hour intake is 2238 mL; output is 3700 mL. Since on the monitor the patient is sinus rhythm with a stable heart rate and blood pressure, I do not see the need to repeat another EKG. The patient was not having any anginal symptoms or shortness of breath or anginal equivalent. The patient's white count was 6400, hemoglobin is 13.3, hematocrit is 38.9, and the platelet count was 187,000. The patient's sodium is 142.4, potassium 4.8, chloride 109, CO2 is 22, the patient's BUN is 10, creatinine 0.64, GFR is greater than 60, glucose is 91. The patient's calcium is 8.9. Her liver function tests are normal. Her troponin I was less than 0.012, which is normal. Her lactic acid came down to 1.6. The patient's triglycerides were elevated at 258, total cholesterol was 179.15, LDL cholesterol direct was 99, and HDL was 31. The patient's TSH was 1.62, free T4 was 1.15. IMPRESSION: 1. NEAR SYNCOPE SECONDARY TO HYPOTENSION SECONDARY TO MEDICATION AND DEHYDRATION SECONDARY TO DYAZIDE AND PATIENT HAVING 1 BOUT OF DIARRHEA. 2. HYPOTENSION MENTIONED EARLIER SECONDARY TO DEHYDRATION AND SECONDARY TO ACCELERATED JUNCTIONAL RHYTHM DUE TO CALCIUM CHANNEL LEONORA AND PATIENT'S BLOOD PRESSURE ALSO BEING LOW DUE TO LISINOPRIL, AND ALSO SECONDARY TO DEHYDRATION DUE TO TAKING DYAZIDE AND HAVING 1 BOUT OF DIARRHEA. 3. ACCELERATED JUNCTIONAL RHYTHM WITH HYPOTENSION AGGRAVATED BY THE PRESENCE OF DEHYDRATION AND LISINOPRIL. Note that the calcium channel leonora toxicity was corrected with calcium gluconate and IV fluids. 4. CHEST PAIN, NON-CARDIAC. No evidence of acute coronary syndrome by EKG, by clinical history or by enzymes. 5. NORMAL LEFT VENTRICULAR SYSTOLIC FUNCTION WITH NO WALL MOTION ABNORMALITY, NO LVH AND ONLY TRACE MITRAL REGURGITATION AND TRACE TRICUSPID REGURGITATION WHICH ARE PHYSIOLOGICAL. 6. DYSLIPIDEMIA WITH A LOW HDL, BORDERLINE GOOD LDL LEVELS, AND HYPERTRIGLYCERIDEMIA WITH ELEVATED TRIGLYCERIDES. 7. HYPOTHYROIDISM. 8. LACTIC ACIDOSIS SECONDARY TO THE PATIENT'S HYPOTENSION AND ALSO THE PATIENT BEING ON METFORMIN. The patient most likely has metabolic symptoms rather than diabetes mellitus with insulin resistance which was treated with metformin but caused metabolic acidosis with elevated lactic acid levels. RECOMMENDATIONS: I have asked the patient to avoid any beta-blockers or AV and SA romario slowing properties of calcium channel leonora such as verapamil or Cardizem. Also, I have asked her to stop the metformin and the patient should probably walk to lose weight so that she can overcome the insulin resistance/metabolic syndrome, and the patient should be on statins. Hypotension, the patient's blood pressure is much improved but would start the patient on 5 mg of lisinopril and subsequently increase it as tolerated. The patient wants me to talk to her and her about further advanced cardiac care plan and further investigations. Discussed with the patient and with Dr. Charles. Will later come when the is there with the patient and discuss with him entirely further course of tests necessary and the rationale behind them. TIME SPENT: Thirty minutes spent on this patient. At this time the patient is being discharged. Will come back and discuss advanced care planning (advanced cardiac planning including further tests and the duration of further tests) and explanation of sudden change in life modalities that would help her insulin resistance and also help her edema to resolve. Discussed with Dr. Charles, the attending physician, and discussed with the nurse. The patient has my cell phone number and she can call me at any time. Will signs off at present but will come back and talk to the as mentioned earlier. DICTATING PHYSICIAN: TELLY CUEVA M.D. [id number] PHY#: [id number] ID: [id number] JOB#: [id number] ACCT: [id number] cc: >
== END 2016-12-11 12:45 | disposition home or self-care (01) | DRG 315 ==
LOC: ER 13:58 → EH 15:27 → UNDOADMIN 16:29 → EH 16:29 → ICU 18:45
PROVIDERS: ADMIT Emergency Medicine; ATTEND Emergency Medicine
DX: I95.89 Other hypotension (principal); E87.2 Acidosis; I49.8 Other specified cardiac arrhythmias; E86.0 Dehydration; R55 Syncope and collapse; I10 Essential (primary) hypertension; E11.9 Type 2 diabetes mellitus without complications; T50.2X5A Adverse effect of carbonic-anhydrase inhibitors, benzothiadiazides and other diuretics, initial encounter; R19.7 Diarrhea, unspecified; Z79.84 Long term (current) use of oral hypoglycemic drugs; Z90.49 Acquired absence of other specified parts of digestive tract; Z90.710 Acquired absence of both cervix and uterus; Z82.49 Family history of ischemic heart disease and other diseases of the circulatory system; Z79.899 Other long term (current) drug therapy
CPT/HCPCS: 36415; 71010; 80053; 80061; 82550; 82553; 82803; 82962; 83605; 83880; 84439; 84443; 84484; 85025; 85610; 85652; 86140; 87040; 93005; 93010; 93306; 96365; 96375; 99291; J0610; J1265; J1650; J7030; S0164

== ENCOUNTER → 2016-12-26 | Outpatient (CLI) | payer BC ==
[2016-12-26 17:01] LABS: BLOOD UREA NITROGEN 21 mg/dL (7-20); CREATININE RESULT 0.73 mg/dL (0.52-1.25)
== END ==
LOC: OD 15:09
PROVIDERS: ATTEND Specialist
DX: Z79.899 Other long term (current) drug therapy (principal)
CPT/HCPCS: 36415; 82565; 84520

== ENCOUNTER → 2017-05-13 | Outpatient (CLI) | payer BC ==
[2017-05-13 07:10] LABS: HEMATOCRIT 41.4 % (36.0-47.0); HEMOGLOBIN 14.5 g/dL (12.0-15.5); HGB HCT DIFFERENCE 2.1; MEAN CORPUSCULAR HEMOGLOBIN 31.3 pg (27.0-33.4); MEAN CORPUSCULAR HGB CONC 35.1 g/dL (32.0-36.0); MEAN CORPUSCULAR VOLUME 89 fl (80-97); RED BLOOD COUNT 4.63 10^6/uL (3.72-5.28); RED CELL DISTRIBUTION WIDTH 12.8 % (11.5-14.0); WHITE BLOOD COUNT 7.9 10^3/uL (4.0-10.5)
[2017-05-13 07:20] LABS: AMORPHOUS SEDIMENT,URINE TRACE /HPF; APPEARANCE,URINE SLIGHTLY-CLOUDY; BILIRUBIN,URINE NEGATIVE (NEGATIVE); GLUCOSE, URINE NEGATIVE (NEGATIVE); KETONES,URINE NEGATIVE (NEGATIVE); LEUKOCYTE ESTERASE,URINE MODERATE (NEGATIVE); NITRITE,URINE NEGATIVE (NEGATIVE); PROTEIN,URINE NEGATIVE (NEGATIVE); URINE SPECIFIC GRAVITY 1.005; UROBILINOGEN,URINE NEGATIVE mg/dL (<2.0)
[2017-05-13 07:31] LABS: ALANINE AMINOTRANSFERASE 60 U/L (9-52); ALBUMIN 4.6 g/dL (3.5-5.0); ALKALINE PHOSPHATASE 57 U/L (38-126); ANION GAP 11 (5-19); ASPARTATE AMINO TRANSFERASE 31 U/L (14-36); BILIRUBIN,DIRECT 0.6 mg/dL (0.0-0.4); BILIRUBIN,TOTAL 0.9 mg/dL (0.2-1.3); BLOOD UREA NITROGEN 31 mg/dL (7-20); CALCIUM 10.4 mg/dL (8.4-10.2); CARBON DIOXIDE 27 mmol/L (22-30); CHLORIDE 105 mmol/L (98-107); CHOLESTEROL 241.56 mg/dL (0-200); CREATININE RESULT 1.62 mg/dL (0.52-1.25); Direct HDL 33 mg/dL (>40); GLUCOSE 113 mg/dL (75-110); POTASSIUM 4.7 mmol/L (3.6-5.0); SODIUM 143.1 mmol/L (137-145); TOTAL PROTEIN 7.5 g/dL (6.3-8.2); TRIGLYCERIDES 206 mg/dL (<150)
[2017-05-13 07:42] LABS: DIRECT LDL 156 mg/dL (<100)
[2017-05-13 07:52] LABS: VLDL CHOLESTEROL 41.2 mg/dL (10-31)
[2017-05-13 08:01] LABS: THYROID STIMULATING HORMONE 0.99 uIU/mL (0.47-4.68)
== END ==
LOC: LAB 06:53
PROVIDERS: ATTEND Internal Medicine
DX: E03.9 Hypothyroidism, unspecified (principal); R73.9 Hyperglycemia, unspecified; E78.00 Pure hypercholesterolemia, unspecified
CPT/HCPCS: 36415; 80053; 80061; 81001; 83036; 84439; 84443; 85027

== ENCOUNTER → 2017-10-07 | Outpatient (CLI) | payer BC ==
[2017-10-07 07:30] LABS: HEMATOCRIT 41.4 % (36.0-47.0); HEMOGLOBIN 13.9 g/dL (12.0-15.5); MEAN CORPUSCULAR HEMOGLOBIN 30.1 pg (27.0-33.4); MEAN CORPUSCULAR HGB CONC 33.6 g/dL (32.0-36.0); MEAN CORPUSCULAR VOLUME 90 fl (80-97); PLATELET COUNT 299 10^3/uL (150-450); RED BLOOD COUNT 4.62 10^6/uL (3.72-5.28); WHITE BLOOD COUNT 9.5 10^3/uL (4.0-10.5)
[2017-10-07 07:40] LABS: APPEARANCE,URINE CLEAR; BILIRUBIN,URINE NEGATIVE (NEGATIVE); COLOR,URINE STRAW; GLUCOSE, URINE NEGATIVE (NEGATIVE); KETONES,URINE NEGATIVE (NEGATIVE); LEUKOCYTE ESTERASE,URINE SMALL (NEGATIVE); NITRITE,URINE NEGATIVE (NEGATIVE); PROTEIN,URINE NEGATIVE (NEGATIVE); URINE SPECIFIC GRAVITY 1.009; UROBILINOGEN,URINE NEGATIVE mg/dL (<2.0)
[2017-10-07 07:51] LABS: ALANINE AMINOTRANSFERASE 29 U/L (9-52); ALBUMIN 4.7 g/dL (3.5-5.0); ALKALINE PHOSPHATASE 56 U/L (38-126); ANION GAP 13 (5-19); ASPARTATE AMINO TRANSFERASE 17 U/L (14-36); BILIRUBIN,DIRECT 0.2 mg/dL (0.0-0.4); BILIRUBIN,TOTAL 0.5 mg/dL (0.2-1.3); BLOOD UREA NITROGEN 33 mg/dL (7-20); CALCIUM 10.4 mg/dL (8.4-10.2); CARBON DIOXIDE 24 mmol/L (22-30); CHLORIDE 105 mmol/L (98-107); CHOLESTEROL 295.55 mg/dL (0-200); GLUCOSE 108 mg/dL (75-110); SODIUM 142.1 mmol/L (137-145); TOTAL PROTEIN 7.3 g/dL (6.3-8.2); TRIGLYCERIDES 270 mg/dL (<150)
[2017-10-07 08:02] LABS: DIRECT LDL 174 mg/dL (<100)
[2017-10-07 08:05] LABS: FREE T4 (FREE THYROXINE) 1.32 ng/dL (0.78-2.19)
[2017-10-07 08:19] LABS: THYROID STIMULATING HORMONE 1.58 uIU/mL (0.47-4.68)
== END ==
LOC: LAB 07:13
PROVIDERS: ATTEND Internal Medicine
DX: I10 Essential (primary) hypertension (principal); E78.00 Pure hypercholesterolemia, unspecified; R73.9 Hyperglycemia, unspecified; E03.9 Hypothyroidism, unspecified
CPT/HCPCS: 36415; 80053; 80061; 81001; 83036; 84439; 84443; 85027

== ENCOUNTER → 2018-03-07 | Outpatient (CLI) | payer BC ==
[2018-03-07 09:48] LABS: ABSOLUTE EOSINOPHILS # (AUTO) 0.1 10^3/uL (0.0-0.6); ABSOLUTE LYMPHOCYTES (AUTO) 2.1 10^3/uL (0.5-4.7); ABSOLUTE MONOCYTES (AUTO) 0.5 10^3/uL (0.1-1.4); ABSOLUTE NEUT (AUTO) 4.8 10^3/uL (1.7-8.2); BASOPHILS % (AUTO) 0.4 % (0-2); HEMATOCRIT 45.3 % (36.0-47.0); HEMOGLOBIN 15.4 g/dL (12.0-15.5); LYMPHOCYTES % (AUTO) 27.8 % (13-45); MEAN CORPUSCULAR HEMOGLOBIN 29.1 pg (27.0-33.4); MEAN CORPUSCULAR HGB CONC 34.1 g/dL (32.0-36.0); MEAN CORPUSCULAR VOLUME 85 fl (80-97); MONOCYTES % (AUTO) 7.1 % (3-13); PLATELET COUNT 209 10^3/uL (150-450); RED BLOOD COUNT 5.31 10^6/uL (3.72-5.28); RED CELL DISTRIBUTION WIDTH 13.9 % (11.5-14.0); SEGMENTED NEUTROPHILS % (AUTO) 63.7 % (42-78); TOTAL CELLS COUNTED % (AUTO) 100 %; WHITE BLOOD COUNT 7.6 10^3/uL (4.0-10.5)
[2018-03-07 09:55] LABS: APPEARANCE,URINE CLEAR; BILIRUBIN,URINE NEGATIVE (NEGATIVE); COLOR,URINE STRAW; GLUCOSE, URINE NEGATIVE (NEGATIVE); KETONES,URINE NEGATIVE (NEGATIVE); LEUKOCYTE ESTERASE,URINE SMALL (NEGATIVE); NITRITE,URINE NEGATIVE (NEGATIVE); PROTEIN,URINE NEGATIVE (NEGATIVE); URINE SPECIFIC GRAVITY 1.003; UROBILINOGEN,URINE NEGATIVE mg/dL (<2.0)
[2018-03-07 10:10] LABS: ALANINE AMINOTRANSFERASE 33 U/L (9-52); ALBUMIN 4.5 g/dL (3.5-5.0); ALKALINE PHOSPHATASE 51 U/L (38-126); ANION GAP 10 (5-19); ASPARTATE AMINO TRANSFERASE 21 U/L (14-36); BILIRUBIN,DIRECT 0.2 mg/dL (0.0-0.4); BILIRUBIN,TOTAL 0.7 mg/dL (0.2-1.3); BLOOD UREA NITROGEN 15 mg/dL (7-20); CALCIUM 10.4 mg/dL (8.4-10.2); CARBON DIOXIDE 30 mmol/L (22-30); CHLORIDE 105 mmol/L (98-107); CHOLESTEROL 173.44 mg/dL (0-200); GLUCOSE 90 mg/dL (75-110); POTASSIUM 4.6 mmol/L (3.6-5.0); SODIUM 145.1 mmol/L (137-145); TOTAL PROTEIN 7.5 g/dL (6.3-8.2); TRIGLYCERIDES 236 mg/dL (<150)
[2018-03-07 10:20] LABS: VLDL CHOLESTEROL 47.2 mg/dL (10-31)
[2018-03-07 10:32] LABS: DIRECT LDL 87 mg/dL (<100)
[2018-03-08 11:39] LABS: CREATININE URINE 17.5 mg/dL (Not Estab.)
[2018-03-08 12:52] LABS: MICROALBUMIN URINE <3.0 ug/mL (Not Estab.)
== END ==
LOC: LAB 09:18
PROVIDERS: ATTEND Internal Medicine
DX: R73.9 Hyperglycemia, unspecified (principal); I10 Essential (primary) hypertension; E78.00 Pure hypercholesterolemia, unspecified
CPT/HCPCS: 36415; 80053; 80061; 81001; 82043; 82570; 83036; 84443; 85025

== ENCOUNTER → 2018-10-06 | Outpatient (CLI) | payer BC ==
[2018-10-06 08:58] LABS: ABSOLUTE EOSINOPHILS # (AUTO) 0.1 10^3/uL (0.0-0.6); ABSOLUTE LYMPHOCYTES (AUTO) 2.1 10^3/uL (0.5-4.7); ABSOLUTE MONOCYTES (AUTO) 0.5 10^3/uL (0.1-1.4); ABSOLUTE NEUT (AUTO) 4.4 10^3/uL (1.7-8.2); BASOPHILS % (AUTO) 0.4 % (0-2); EOSINOPHILS % (AUTO) 1.2 % (0-6); HEMATOCRIT 43.4 % (36.0-47.0); HEMOGLOBIN 14.8 g/dL (12.0-15.5); LYMPHOCYTES % (AUTO) 29.2 % (13-45); MEAN CORPUSCULAR HEMOGLOBIN 29.6 pg (27.0-33.4); MEAN CORPUSCULAR HGB CONC 34.2 g/dL (32.0-36.0); MEAN CORPUSCULAR VOLUME 87 fl (80-97); MONOCYTES % (AUTO) 7.1 % (3-13); PLATELET COUNT 196 10^3/uL (150-450); RED BLOOD COUNT 5.01 10^6/uL (3.72-5.28); RED CELL DISTRIBUTION WIDTH 13.8 % (11.5-14.0); SEGMENTED NEUTROPHILS % (AUTO) 62.1 % (42-78); TOTAL CELLS COUNTED % (AUTO) 100 %; WHITE BLOOD COUNT 7.1 10^3/uL (4.0-10.5)
[2018-10-06 09:22] LABS: ALANINE AMINOTRANSFERASE 21 U/L (9-52); ALBUMIN 4.7 g/dL (3.5-5.0); ALKALINE PHOSPHATASE 61 U/L (38-126); ANION GAP 9 (5-19); ASPARTATE AMINO TRANSFERASE 18 U/L (14-36); BILIRUBIN,DIRECT 0.3 mg/dL (0.0-0.4); BILIRUBIN,TOTAL 0.6 mg/dL (0.2-1.3); BLOOD UREA NITROGEN 18 mg/dL (7-20); CALCIUM 9.9 mg/dL (8.4-10.2); CARBON DIOXIDE 29 mmol/L (22-30); CHLORIDE 105 mmol/L (98-107); CHOLESTEROL 196.66 mg/dL (0-200); GLUCOSE 101 mg/dL (75-110); POTASSIUM 4.6 mmol/L (3.6-5.0); SODIUM 142.7 mmol/L (137-145); TOTAL PROTEIN 7.2 g/dL (6.3-8.2); TRIGLYCERIDES 208 mg/dL (<150)
[2018-10-06 09:33] LABS: DIRECT LDL 116 mg/dL (<100)
[2018-10-06 09:34] LABS: VLDL CHOLESTEROL 41.6 mg/dL (10-31)
[2018-10-06 09:39] LABS: FREE T4 (FREE THYROXINE) 1.21 ng/dL (0.78-2.19)
[2018-10-06 09:53] LABS: THYROID STIMULATING HORMONE 3.32 uIU/mL (0.47-4.68)
== END ==
LOC: LAB 06:15
PROVIDERS: ATTEND Internal Medicine
DX: E03.9 Hypothyroidism, unspecified (principal); I10 Essential (primary) hypertension; E78.00 Pure hypercholesterolemia, unspecified; R73.9 Hyperglycemia, unspecified
CPT/HCPCS: 36415; 80053; 80061; 83036; 84439; 84443; 85025

== ENCOUNTER → 2019-04-12 | Outpatient (CLI) | payer BC ==
[2019-04-12 07:03] LABS: ABSOLUTE EOSINOPHILS # (AUTO) 0.1 10^3/uL (0.0-0.6); ABSOLUTE LYMPHOCYTES (AUTO) 2.7 10^3/uL (0.5-4.7); ABSOLUTE MONOCYTES (AUTO) 0.4 10^3/uL (0.1-1.4); ABSOLUTE NEUT (AUTO) 3.6 10^3/uL (1.7-8.2); BASOPHILS % (AUTO) 0.7 % (0-2); EOSINOPHILS % (AUTO) 1.5 % (0-6); HEMATOCRIT 43.4 % (36.0-47.0); HEMOGLOBIN 14.6 g/dL (12.0-15.5); LYMPHOCYTES % (AUTO) 39.2 % (13-45); MEAN CORPUSCULAR HEMOGLOBIN 29.2 pg (27.0-33.4); MEAN CORPUSCULAR HGB CONC 33.6 g/dL (32.0-36.0); MEAN CORPUSCULAR VOLUME 87 fl (80-97); MONOCYTES % (AUTO) 6.4 % (3-13); PLATELET COUNT 225 10^3/uL (150-450); SEGMENTED NEUTROPHILS % (AUTO) 52.2 % (42-78); TOTAL CELLS COUNTED % (AUTO) 100 %
[2019-04-12 07:05] LABS: APPEARANCE,URINE CLEAR; BILIRUBIN,URINE NEGATIVE (NEGATIVE); COLOR,URINE YELLOW; GLUCOSE, URINE NEGATIVE (NEGATIVE); KETONES,URINE NEGATIVE (NEGATIVE); LEUKOCYTE ESTERASE,URINE SMALL (NEGATIVE); NITRITE,URINE NEGATIVE (NEGATIVE); PROTEIN,URINE NEGATIVE (NEGATIVE); URINE SPECIFIC GRAVITY 1.011; UROBILINOGEN,URINE NEGATIVE mg/dL (<2.0)
[2019-04-12 07:21] LABS: ALBUMIN 4.4 g/dL (3.5-5.0); ALKALINE PHOSPHATASE 61 U/L (38-126); ANION GAP 9 (5-19); ASPARTATE AMINO TRANSFERASE 22 U/L (14-36); BILIRUBIN,DIRECT 0.4 mg/dL (0.0-0.4); BILIRUBIN,TOTAL 0.7 mg/dL (0.2-1.3); BLOOD UREA NITROGEN 17 mg/dL (7-20); CALCIUM 10.1 mg/dL (8.4-10.2); CARBON DIOXIDE 28 mmol/L (22-30); CHLORIDE 106 mmol/L (98-107); CHOLESTEROL 172.18 mg/dL (0-200); GLUCOSE 106 mg/dL (75-110); POTASSIUM 4.7 mmol/L (3.6-5.0); TOTAL PROTEIN 7.2 g/dL (6.3-8.2); TRIGLYCERIDES 202 mg/dL (<150)
[2019-04-12 07:33] LABS: DIRECT LDL 113 mg/dL (<100)
[2019-04-12 07:38] LABS: VLDL CHOLESTEROL 40.4 mg/dL (10-31)
[2019-04-12 07:54] LABS: FREE T4 (FREE THYROXINE) 1.13 ng/dL (0.78-2.19); THYROID STIMULATING HORMONE 1.86 uIU/mL (0.47-4.68)
== END ==
LOC: LAB 06:35
PROVIDERS: ATTEND Internal Medicine
DX: E78.00 Pure hypercholesterolemia, unspecified (principal); R73.9 Hyperglycemia, unspecified; N28.9 Disorder of kidney and ureter, unspecified
CPT/HCPCS: 36415; 80053; 80061; 81001; 83036; 84439; 84443; 85025

== ENCOUNTER 2019-06-21 03:28 | Emergency (ER) | payer BC ==
--- NOTE | 2019-06-21 04:23 | RADIOLOGY REPORT (SQ) ---
EXAM DESCRIPTION: XR WRIST 3 OR MORE VIEWS COMPLETED DATE/TME: 06/21/2019 03:37 CLINICAL HISTORY: 59 years Female, bone tenderness, swelling, pain upon palpation COMPARISON: None. Findings: Acute comminuted fracture of the distal metaphysis of the left radius with mild ulnodorsal angulation. Bones, joints, and soft tissues of the LEFT XR WRIST 3 OR MORE VIEWS appear otherwise unremarkable. IMPRESSION: Acute comminuted fracture of the distal metaphysis of the left radius with mild ulnodorsal angulation.
[2019-06-21] MEDS ORDERED: HYDROMORPHONE HCL INJ/PF 2 MG/ML AMPULE IM ONE (04:39)
[2019-06-21] MEDS ORDERED: ONDANSETRON 4 MG TAB.RAPDIS PO ONE (04:39)
--- NOTE | 2019-06-21 04:41 | ER Document Report ---
ED Extremity Problem, Upper - General Chief Complaint: Arm Pain Stated Complaint: POSSIBLE BROKEN ARM Time Seen by Provider: 06/21/19 04:28 Primary Care Provider: YISSEL MIDDLETON MD [ACTIVE STAFF] - Follow up tomorrow Notes: Patient is a 59-year-old female that comes emergency department for chief complaint of falling out of her bed when waking up this morning, she landed on her left arm primarily on her left wrist, elbow, and also on the tip of her shoulder. She did hit her head on the ground as well. She was not knocked out, she denies headache, alcohol, she is not on a blood thinner. Her wrist area began to swell and she came in for evaluation for possible broken arm/wrist. She denies any other complaints at this time. She denies focal numbness or weakness, visual changes, vomiting. TRAVEL OUTSIDE OF THE [place] IN LAST 30 DAYS: No - Related Data Allergies/Adverse Reactions: No Known Allergies Allergy (Unverified 06/21/19 03:36) Past Medical History - General Information source: Patient - Social History Smoking Status: Never Smoker Frequency of alcohol use: None Drug Abuse: None Lives with: Family Family History: CAD - Sister and father of massive DC Patient has suicidal ideation: No Patient has homicidal ideation: No - Past Medical History Cardiac Medical History: Reports: Hx Hypercholesterolemia, Hx Hypertension Neurological Medical History: Reports: Hx Migraine Endocrine Medical History: Reports: Hx Diabetes Mellitus Type 2, Hx Hypothyroidism Psychiatric Medical History: Denies: Hx Depression Past Surgical History: Reports: Hx Cholecystectomy, Hx Hysterectomy, Other - C- section - Immunizations Hx Diphtheria, Pertussis, Tetanus Vaccination: Yes Review of Systems - Review of Systems Constitutional: No symptoms reported EENT: No symptoms reported Cardiovascular: No symptoms reported Respiratory: No symptoms reported Gastrointestinal: No symptoms reported Genitourinary: No symptoms reported Female Genitourinary: No symptoms reported Musculoskeletal: See HPI Skin: No symptoms reported Hematologic/Lymphatic: No symptoms reported Neurological/Psychological: See HPI Physical Exam - Vital signs Vitals: Temp Pulse Resp BP Pulse Ox 98.1 F 67 17 161/91 H 97 06/21/19 04:07 06/21/19 04:07 06/21/19 04:07 06/21/19 04:07 06/21/19 04:07 - Notes Notes: GENERAL: Alert, interacts well. Patient cradling her left arm/wrist. Otherwise no distress. HEAD: Normocephalic, atraumatic. EYES: Pupils equal, round, and reactive to light. Extraocular movements intact. ENT: Oral mucosa moist, tongue midline. Oropharynx unremarkable. Airway patent. Nares patent, no nasal septal hematoma. NECK: Full range of motion. Supple. Trachea midline. LUNGS: Clear to auscultation bilaterally, no wheezes, rales, or rhonchi. No respiratory distress. Nontender chest. HEART: Regular rate and rhythm. No murmur ABDOMEN: Soft, non-tender. Non-distended. EXTREMITIES: Tenderness over the left AC joint and with range of motion but range of motion intact. There is swelling and tenderness over the left wrist generally, patient has difficulty flexing and extending the left wrist. Esthetic Dermatologist intact, capillary refill and sensation intact, otherwise unremarkable upper extremity exam. No overt deformity noted. BACK: No signs of trauma. No tenderness over the back. No cervical, thoracic, lumbar midline tenderness. No saddle anesthesia, normal distal neurovascular exam. NEUROLOGICAL: Alert and oriented x3. Normal speech. Cranial nerves II through XII grossly intact. PSYCH: Normal affect, normal mood. SKIN: Warm, dry, normal turgor. No rashes or lesions noted. Course - Re-evaluation Re-evalutation: X-ray of the shoulder unremarkable, x-ray of the left wrist shows comminuted fracture of the distal radius with minimal angulation. No neurovascular deficits. I did discuss with Dr. Gonzales, he does not recommend reduction, he recommends splinting and orthopedic follow-up. This was provided for patient, I did discuss head injury, no CAT scan will be performed because she does not take a blood thinner, she denies alcohol, she was not knocked out, there is no sign of head trauma, and she has no neurologic symptoms or deficits. Family states they will monitor her closely, discussed all recommendations, discussed return precautions. They state understanding and agreement. Stable at time of discharge. - Vital Signs Vital signs: Temp Pulse Resp BP Pulse Ox 97.8 F 69 17 132/75 H 97 06/21/19 05:55 06/21/19 05:55 06/21/19 04:07 06/21/19 05:55 06/21/19 05:55 Procedures - Immobilization left wrist Pre-Proc Neuro Vasc Exam: Normal Immobilizer type: Sugar tong Performed by: PCT Post-Proc Neuro Vasc Exam: Normal Alignment checked and good: Yes Discharge - Discharge Clinical Impression: Fall Qualifiers: Encounter type: initial encounter Qualified Code(s): W19.XXXA - Unspecified fall, initial encounter Left shoulder pain Qualifiers: Chronicity: acute Qualified Code(s): M25.512 - Pain in left shoulder Left wrist fracture Qualifiers: Encounter type: initial encounter Fracture type: closed Qualified Code(s): S62.102A - Fracture of unspecified carpal bone, left wrist, initial encounter for closed fracture Condition: Stable Disposition: HOME, SELF-CARE Additional Instructions: Your x-rays show a comminuted fracture at the radial head in your wrist. Please wear the splint, use the sling for comfort, and call orthopedics for close follow-up and additional management. Take the pain medication as prescribed if needed. Consider [id number] stool softener for constipation if you do take the medication. The x-rays of your shoulder are negative. Please follow head injury precautions listed below. Return for any concerning symptoms including severe pain or swelling. Head Injury Precautions At this point, there is no evidence that your head injury is serious. Observation is necessary, however. Limit activity for the first 24 hours. Bed rest is best. During the first 24 hours, check to see approximately every two to three hours that the patient is easily arousable, responds normally, and can perform common tasks such as walking without difficulty. Contact your doctor or go to the hospital if any of the following things occur: Persistent vomiting, difficulty in arousing the patient, worsening or continued headache, or failure to improve as expected. Head injuries can cause symptoms that persist for a few days or even a few weeks. Prescriptions: Oxycodone HCl/Acetaminophen [Percocet 5-325 mg Tablet] 1 - 2 tab PO TID PRN #12 tablet PRN Reason: Forms: Treatment of Relative/Child Referrals: YISSEL MIDDLETON MD [ACTIVE STAFF] - Follow up tomorrow
--- NOTE | 2019-06-21 05:52 | RADIOLOGY REPORT (SQ) ---
EXAM DESCRIPTION: XR SHOULDER 2 OR MORE VIEWS COMPLETED DATE/TME: 06/21/2019 04:39 CLINICAL HISTORY: 59 years, Female, fall on shoulder, AC area pain COMPARISON: None. FINDINGS: 3 views of the left shoulder. No acute fracture or dislocation. Normal osseous mineralization. No left-sided pneumothorax identified. Degenerative change of the acromioclavicular joint. IMPRESSION: 1. No acute fracture or dislocation. copyright 2010 [employer]- All Rights Reserved
[2019-06-21] MEDS ORDERED: HYDROCODONE/ACETAMINOPHEN 5-325 MG (6 TAB/ER DISP) PO PRN (05:55)
[2019-06-21 05:56] VITALS: BP 132/75
== END 2019-06-21 06:02 | disposition home or self-care (01) ==
LOC: ER 03:28
PROC: 2W3DX1Z Immobilization of Left Lower Arm using Splint (ICD-10-PCS; principal; 2019-06-21)
DX: S62.102A Fracture of unspecified carpal bone, left wrist, initial encounter for closed fracture (principal); M25.512 Pain in left shoulder; M79.602 Pain in left arm; M25.532 Pain in left wrist; M25.522 Pain in left elbow; M79.89 Other specified soft tissue disorders; W06.XXXA Fall from bed, initial encounter; I10 Essential (primary) hypertension; E11.9 Type 2 diabetes mellitus without complications
CPT/HCPCS: 99283; 96372; 73030; 73110; 29125; S0119; J1170

== ENCOUNTER → 2019-11-11 | Outpatient (CLI) | payer BC ==
[2019-11-11 09:09] LABS: ABSOLUTE EOSINOPHILS # (AUTO) 0.1 10^3/uL (0.0-0.6); ABSOLUTE LYMPHOCYTES (AUTO) 2.2 10^3/uL (0.5-4.7); ABSOLUTE MONOCYTES (AUTO) 0.5 10^3/uL (0.1-1.4); ABSOLUTE NEUT (AUTO) 4.9 10^3/uL (1.7-8.2); BASOPHILS % (AUTO) 0.3 % (0-2); EOSINOPHILS % (AUTO) 0.8 % (0-6); HEMATOCRIT 47.4 % (36.0-47.0); HEMOGLOBIN 16.3 g/dL (12.0-15.5); LYMPHOCYTES % (AUTO) 28.3 % (13-45); MEAN CORPUSCULAR HGB CONC 34.5 g/dL (32.0-36.0); MEAN CORPUSCULAR VOLUME 87 fl (80-97); PLATELET COUNT 229 10^3/uL (150-450); RED BLOOD COUNT 5.45 10^6/uL (3.72-5.28); SEGMENTED NEUTROPHILS % (AUTO) 64.6 % (42-78); TOTAL CELLS COUNTED % (AUTO) 100 %; WHITE BLOOD COUNT 7.6 10^3/uL (4.0-10.5)
[2019-11-11 09:17] LABS: APPEARANCE,URINE CLEAR; BILIRUBIN,URINE NEGATIVE (NEGATIVE); COLOR,URINE YELLOW; GLUCOSE, URINE NEGATIVE (NEGATIVE); KETONES,URINE NEGATIVE (NEGATIVE); LEUKOCYTE ESTERASE,URINE NEGATIVE (NEGATIVE); NITRITE,URINE NEGATIVE (NEGATIVE); PROTEIN,URINE NEGATIVE (NEGATIVE)
[2019-11-11 09:39] LABS: ALBUMIN 4.6 g/dL (3.5-5.0); ALKALINE PHOSPHATASE 67 U/L (38-126); ANION GAP 9 (5-19); ASPARTATE AMINO TRANSFERASE 29 U/L (14-36); BILIRUBIN,TOTAL 0.7 mg/dL (0.2-1.3); BLOOD UREA NITROGEN 17 mg/dL (7-20); CALCIUM 9.7 mg/dL (8.4-10.2); CARBON DIOXIDE 30 mmol/L (22-30); CHLORIDE 102 mmol/L (98-107); CHOLESTEROL 169.37 mg/dL (0-200); GLUCOSE 103 mg/dL (75-110); POTASSIUM 4.3 mmol/L (3.6-5.0); TOTAL PROTEIN 7.5 g/dL (6.3-8.2); TRIGLYCERIDES 206 mg/dL (<150)
[2019-11-11 09:50] LABS: DIRECT LDL 110 mg/dL (<100)
[2019-11-11 09:54] LABS: FREE T4 (FREE THYROXINE) 1.28 ng/dL (0.78-2.19)
[2019-11-11 09:59] LABS: VLDL CHOLESTEROL 41.2 mg/dL (10-31)
[2019-11-11 10:08] LABS: THYROID STIMULATING HORMONE 1.6 uIU/mL (0.47-4.68)
== END ==
LOC: OD 07:59
PROVIDERS: ATTEND Internal Medicine
DX: E78.00 Pure hypercholesterolemia, unspecified (principal); E03.9 Hypothyroidism, unspecified; R73.9 Hyperglycemia, unspecified; N28.9 Disorder of kidney and ureter, unspecified
CPT/HCPCS: 36415; 80053; 80061; 81001; 83036; 84439; 84443; 85025

== ENCOUNTER → 2020-05-18 | Outpatient (CLI) | payer BC ==
[2020-05-18 12:47] LABS: ABSOLUTE EOSINOPHILS # (AUTO) 0.1 10^3/uL (0.0-0.6); ABSOLUTE MONOCYTES (AUTO) 0.4 10^3/uL (0.1-1.4); ABSOLUTE NEUT (AUTO) 3.6 10^3/uL (1.7-8.2); BASOPHILS % (AUTO) 0.4 % (0-2); EOSINOPHILS % (AUTO) 1.7 % (0-6); HEMATOCRIT 46.1 % (36.0-47.0); LYMPHOCYTES % (AUTO) 32.4 % (13-45); MEAN CORPUSCULAR HEMOGLOBIN 30.2 pg (27.0-33.4); MEAN CORPUSCULAR HGB CONC 34.8 g/dL (32.0-36.0); MEAN CORPUSCULAR VOLUME 87 fl (80-97); MONOCYTES % (AUTO) 6.5 % (3-13); PLATELET COUNT 182 10^3/uL (150-450); RED CELL DISTRIBUTION WIDTH 14.1 % (11.5-14.0); TOTAL CELLS COUNTED % (AUTO) 100 %; WHITE BLOOD COUNT 6.2 10^3/uL (4.0-10.5)
[2020-05-18 13:09] LABS: ALBUMIN 4.5 g/dL (3.5-5.0); ALKALINE PHOSPHATASE 72 U/L (38-126); ANION GAP 10 (5-19); ASPARTATE AMINO TRANSFERASE 54 U/L (14-36); BILIRUBIN,DIRECT 0.3 mg/dL (0.0-0.4); BILIRUBIN,TOTAL 0.7 mg/dL (0.2-1.3); BLOOD UREA NITROGEN 16 mg/dL (7-20); CALCIUM 9.7 mg/dL (8.4-10.2); CARBON DIOXIDE 27 mmol/L (22-30); CHLORIDE 104 mmol/L (98-107); CHOLESTEROL 199.76 mg/dL (0-200); GLUCOSE 97 mg/dL (75-110); POTASSIUM 4.3 mmol/L (3.6-5.0); TOTAL PROTEIN 7.2 g/dL (6.3-8.2); TRIGLYCERIDES 221 mg/dL (<150)
[2020-05-18 13:19] LABS: DIRECT LDL 133 mg/dL (<100)
[2020-05-18 13:24] LABS: FREE T4 (FREE THYROXINE) 1.02 ng/dL (0.78-2.19)
[2020-05-18 13:29] LABS: VLDL CHOLESTEROL 44.2 mg/dL (10-31)
[2020-05-18 13:38] LABS: THYROID STIMULATING HORMONE 1.71 uIU/mL (0.47-4.68)
[2020-05-18 13:55] LABS: APPEARANCE,URINE CLEAR; BILIRUBIN,URINE NEGATIVE (NEGATIVE); COLOR,URINE STRAW; GLUCOSE, URINE NEGATIVE (NEGATIVE); KETONES,URINE NEGATIVE (NEGATIVE); LEUKOCYTE ESTERASE,URINE NEGATIVE (NEGATIVE); NITRITE,URINE NEGATIVE (NEGATIVE); PROTEIN,URINE NEGATIVE (NEGATIVE); URINE SPECIFIC GRAVITY 1.008; UROBILINOGEN,URINE NEGATIVE mg/dL (<2.0)
== END ==
LOC: OD 11:33
PROVIDERS: ATTEND Internal Medicine
DX: R73.9 Hyperglycemia, unspecified (principal); E03.9 Hypothyroidism, unspecified; E78.00 Pure hypercholesterolemia, unspecified
CPT/HCPCS: 36415; 80053; 80061; 81001; 83036; 84439; 84443; 85025

== ENCOUNTER → 2020-08-05 | Outpatient (CLI) | payer BC ==
[~2020-08-05] MED LIST: COVID-19 VACCINE (PFIZER)/PF 30 MCG/0.3 ML VIAL IM ONE; EPINEPHRINE INJ/PF 1 MG/1 ML AMPULE IM PRN
== END ==
LOC: EMPHEALTH 14:39
PROVIDERS: ATTEND Internal Medicine
DX: Z23 Encounter for immunization (principal)
CPT/HCPCS: 91300

== ENCOUNTER → 2020-08-26 | Outpatient (CLI) | payer BC | LOC: EMPHEALTH 08:29 | PROVIDERS: ATTEND Internal Medicine | DX: Z23 Encounter for immunization (principal) | CPT/HCPCS: 91300 ==